=== PATIENT | male | born 1980 | race Caucasian/White ===

== ENCOUNTER 2021-12-10 01:02 | Emergency (ER) | payer BC, SELFPAY ==
--- OUTSIDE RECORDS SUMMARY | 2021-12-10 01:11 | XMS REPORT | Continuity of Care Document ---
:1980 Author Organization [facility] t Address [address] [place] [address] Care Team Providers Name Role Phone Unavailable Unavailable Unavailable Payers Payer Name Policy Type Policy Number Effective Date Expiration Date S ource Problems Condition Condition Condition Status Onset Resolution Last Treating Co mments Source Name Details Category Date Date Treatment Clinician Date Incomplete Incomplete Diagnosis Active [facility] tear [facility] tear of [facility] - left left [facility] rotator rotator l cuff cuff Outpati ent Clinics Pain, Pain, Diagnosis Active [facility] joint, joint, [facility] - shoulder, shoulder, Cristi kera left left l Outpati ent Clinics Superior Superior Diagnosis Active [facility] glenoid glenoid [facility] - labrum labrum [facility] lesion of lesion of l left left Outpati shoulder, shoulder, ent subsequent subsequent Cl inics encounter encounter Bicipital Bicipital Diagnosis Active [facility] tendinitis tendinitis Venecia kes - of left of left [facility] shoulder shoulder l Outpati ent Clinics Allergies, Adverse Reactions, Alerts Allergy Allergy Status Severity Reaction(s) Onset Inactive Treating Comm ents Source Name Type Date Date Clinician No Known DA Active [facility] [place] [facility] No Known DA Active [facility] 09[facility] [place] [facility] 00:[facility] Medications Ordered Filled Start Stop Current Ordering Indication Dosage Frequency Signature Comments Components Source Medication Medication Date Date Medication? Clinician (SIG) Name Name Ibuprofen Ibuprofen Yes Venancio [address] [facility] 9-25 Fry with food [facility] - 00:00: or milk as [facility]oria 00 needed l Outpati ent Clinics Procedures This patient has no known procedures. Encounters Start End Encounter Admission Attending Care Care Encounter Source Date/Time Date/Time Type Type Clinicians Facility Department ID 2021-09-25 Outpatient [facility] [id number] [facility] 13:56:07 [id number] [facility] 2018-08-10 2018-08-10 [facility] [id number] [facility] 10:30:00 10:30:00 [facility] 2018-06-11 2018-06-11 [facility] [id number] [facility] 10:37:00 10:37:00 t [facility] 2018-06-08 2018-06-08 [facility] [id number] [facility] 08:00:00 08:00:00 t [facility] 2018-05-31 2018-05-31 [facility] [id number] [facility] 10:56:00 10:56:00 t [facility] 2018-05-26 2018-05-26 [facility] [id number] 10:40:00 10:40:00 t [facility] 2018-05-25 2018-05-25 [facility] [id number] 08:30:00 08:30:00 t [facility] Results This patient has no known results.
[2021-12-10 02:08] LABS: Urine Blood Negative (Negative); Urine Glucose Negative (Negative); Urine Protein Negative (Negative); Urine Specific Gravity 1.025 (1.005-1.030)
[2021-12-10 02:18] LABS: Absolute Lymphocytes (CBC) 1.5 K/uL (0.7-4.9); Lymphocytes % 28.6 % (15.3-44.8); MPV 7.3 fL (7.6-11.3); RBC Red Blood Cell Count 4.76 M/uL (4.33-5.43)
[2021-12-10 02:21] LABS: Protime INR 1.11
[2021-12-10 02:33] LABS: Barbiturates NEGATIVE (NEGATIVE); Benzodiazepines POSITIVE (NEGATIVE); Cocaine NEGATIVE (NEGATIVE); METHAMPHETAM POSITIVE (NEGATIVE); Methadone NEGATIVE (NEGATIVE); Opiates NEGATIVE (NEGATIVE); Phencyclidine NEGATIVE (NEGATIVE); THC Cannibis NEGATIVE (NEGATIVE)
[2021-12-10 02:41] LABS: ALT/SGPT 21 U/L (12-78); AST/SGOT 15 U/L (15-37); Albumin 3.3 g/dL (3.4-5.0); Alkaline Phosphatase 62 U/L (45-117); BUN Blood Urea Nitrogen 12 mg/dL (7-18); Bicarbonate 27 mmol/L (21-32); Bilirubin Direct 0.2 mg/dL (0-0.2); Bilirubin Total 0.7 mg/dL (0.2-1.0); Glucose Level 83 mg/dL (74-106); Potassium 3.5 mmol/L (3.5-5.1); Sodium Level 142 mmol/L (136-145); Troponin High Sensitivity 4.3 pg/mL (<58.9)
--- NOTE | 2021-12-10 07:19 | EDPHYS ---
Physician Documentation [facility] Name: Ricardo Garcia Age: 41 yrs Sex: Male : 1980 Arrival Date: 12/10/2021 Time: 01:12 Bed 18 Private MD: ED Physician Vinay Gifford HPI: 12/10 01:25 This 41 yrs old Male presents to ER via EMS with complaints of Overdose. mh7 01:25 The patient presents to the emergency department with a possible overdose, pills found mh7 near patient. Context: Method: the patient has a confirmed or suspected ingestion, of alcohol, of narcotics, variable pills suspected, Time: the patient's OD/poisoning occurred at an unknown time, Extent: it is unknown what amount the patient ingested, the OD/poisoning occurred at at home, and was witnessed no one, Psychiatric history: it is unknown whether or not the patient has an antecedent psychiatric history, Previous OD/poisoning history: It is unknown if the patient has had similar previous episodes. Associated signs and symptoms: Pertinent positives: depression. Severity of symptoms: At their worst the symptoms were moderate today, in the emergency department the symptoms are unchanged. Found by police at home with multiple different pills near him and bottle of ETOH with AMS. Family had called police to do a welfare check after patient sent a text saying "Goodbye" to family member.. 07:21 It is unknown whether or not the patient has had similar symptoms in the past. clementina Historical: - Allergies: 08:47 No Known Allergies; ss - Home Meds: 08:47 None [Active]; ss - PMHx: 08:47 None; ss - PSHx: 08:47 None; ss - Immunization history:: Adult Immunizations unknown. - Social history:: Smoking status: unknown. ROS: 01:25 Unable to obtain ROS due to altered mental status. 7 Exam: 01:25 Head/Face: Normocephalic, atraumatic. mh7 01:25 Neck: Trachea midline, no thyromegaly or masses palpated, and no cervical lymphadenopathy. Supple, full range of motion without nuchal rigidity, or vertebral point tenderness. No Meningismus. Chest/axilla: Normal chest wall appearance and motion. Nontender with no deformity. No lesions are appreciated. Cardiovascular: Regular rate and rhythm with a normal S1 and S2. No gallops, murmurs, or rubs. Normal PMI, no JVD. No pulse deficits. Respiratory: Lungs have equal breath sounds bilaterally, clear to auscultation and percussion. No rales, rhonchi or wheezes noted. No increased work of breathing, no retractions or nasal flaring. Abdomen/GI: Soft, non-tender, with normal bowel sounds. No distension or tympany. No guarding or rebound. No evidence of tenderness throughout. Back: No spinal tenderness. No costovertebral tenderness. Full range of motion. Skin: Warm, dry with normal turgor. Normal color with no rashes, no lesions, and no evidence of cellulitis. MS/ Extremity: Pulses equal, no cyanosis. Neurovascular intact. Full, normal range of motion. 01:25 Constitutional: The patient appears AMS, responsive to tactile stimuli 01:25 Eyes: Periorbital structures: appear normal, Pupils: pinpoint, bilaterally. 01:25 Neuro: Orientation: unable to test, AMS, Mentation: unable to test, AMS, Memory: unable to test, AMS, Cranial nerves: unable to test, AMS, Cerebellar function: unable to test, AMS, Motor: moves all fours, Sensation: no obvious gross deficits, Gait: not tested. seizure activity, is not displayed by the patient, Abnormal movements: there are no abnormal movements. Vital Signs: 01:12 BP 142 / 92; Pulse 77; Resp 14; Temp 97.4(TE); Pulse Ox 97% on R/A; Weight 108.86 kg jb4 (R); Height 6 ft. 3 in. (190.50 cm) (R); Pain 0/10; 01:26 BP 133 / 93; Pulse 73; Resp 14; Temp 98.5; Pulse Ox 99% on 2 lpm NC; Pain 0/10; anupama 02:43 BP 136 / 87; Pulse 57; Resp 14; Pulse Ox 99% on 2 lpm NC; Pain 0/10; anupama 04:17 BP 132 / 85; Pulse 70; Resp 18; Pulse Ox 99% on R/A; Pain 0/10; anupama 05:32 BP 143 / 94; Pulse 65; Resp 18; Pulse Ox 99% on R/A; Pain 0/10; anupama 06:40 BP 141 / 95; Pulse 72; Resp 18; Pulse Ox 99% on R/A; Pain 0/10; anupama 08:00 BP 168 / 92; Pulse 73; Resp 18 S; Temp 97.8(TE); Pulse Ox 100% on R/A; Pain 1/10; aa5 15:42 BP 157 / 69; Pulse 75; Resp 16; Temp 97.2; Pulse Ox 99% on R/A; dw3 01:12 Body Mass Index 30.00 (108.86 kg, 190.50 cm) jb4 MDM: 06:54 Differential diagnosis: Ingestion/exposure to narcotics polypharmacy, over medication, mh7 hypoglycemia, closed head injury, intracranial hemorrhage. Data reviewed: vital signs, nurses notes, EMS record. ED course: Patient AA\\T\\Ox4, NAD, VSS, no focal neurological deficits. He does not remember all of the events from last night but does admit to feeling depressed and is tearful.. 07:16 Patient medically screened. clementina 12/10 01:15 Order name: Acetaminophen; Complete Time: 02:45 12/10 01:15 Order name: Basic Metabolic Panel; Complete Time: 02:45 12/10 01:15 Order name: CBC with Diff; Complete Time: 02:45 12/10 01:15 Order name: ETOH Level; Complete Time: 02:45 12/10 01:15 Order name: Hepatic Function; Complete Time: 02:45 12/10 01:15 Order name: PT-INR; Complete Time: 02:45 12/10 01:15 Order name: Ptt, Activated; Complete Time: 02:45 12/10 01:15 Order name: Salicylate; Complete Time: 02:45 12/10 01:15 Order name: Urine Drug Screen; Complete Time: 02:45 12/10 01:15 Order name: Troponin High Sensitivity; Complete Time: 02:45 12/10 02:09 Order name: Urine Dipstick-Ancillary; Complete Time: 02:45 EDMS 12/10 02:46 Order name: CPK; Complete Time: 03:38 12/10 07:29 Order name: COVID-19 SARS RT PCR (Document "Date of Onset" if Symptomatic); Complete bd Time: 15:44 12/10 01:15 Order name: EKG; Complete Time: 01:16 12/10 01:15 Order name: EKG - Nurse/Tech; Complete Time: 02:09 12/10 01:15 Order name: IV Saline Lock; Complete Time: 02:09 12/10 01:15 Order name: Labs collected and sent; Complete Time: 02:09 12/10 01:15 Order name: Suicide Precautions; Complete Time: 02:09 12/10 01:15 Order name: Suicide Screening ([place]); Complete Time: 02:09 12/10 01:15 Order name: Urine Dipstick-Ancillary (obtain specimen); Complete Time: 02:09 12/10 01:20 Order name: C Spine Wo Con EDCO 12/10 01:20 Order name: Head Brain Wo Cont EDCO 12/10 07:18 Order name: Diet Regular; Complete [facility]: 07:19 [facility] 12/10 11:22 Order name: Diet Finger Food; Complete Time: 11:23 bd 12/10 11:31 Order name: Diet Finger Food; Complete Time: 11:31 [facility] 12/10 17:13 Order name: Diet Finger Food; Complete Time: 17:13 dw3 Administered Medications: 20:36 Not Given (Patient Refused; deputy here soonn): Ativan (LORazepam) 2 mg IM once anupama 20:37 Not Given (Patient Refused; deputy here soon): HALdol (as decanoate) 5 mg IM once anupama 20:37 Not Given (Patient Refused; deputy here soon): Benadryl (diphenhydrAMINE) 50 mg IM once anupama Disposition Summary: 12/10/21 07:19 Transfer Ordered Transfer Location: Psych Facility clementina Reason: Higher level of care clementina Condition: Fair clementina Problem: new clementina Symptoms: have improved clementina Accepting Physician: to psych(12/10/21 20:40) anupama Diagnosis - Major depressive disorder, recurrent, moderate clementina - Suicidal ideations clementina Forms: - Medication Reconciliation Form clementina - SBAR form clementina Signatures: Dispatcher [employer] EDDeshaun Hammer MD MD cha Smirch, Shelby, RN RN Eusebio Riggins RN RN jb4 Vinay Gifford MD MD 7 Kat Lake RN RN anupama Corrections: (The following items were deleted from the chart) 01:18 01:16 Head C Spine MPR Wo Con+CT.RAD.BRZ ordered. EDMS EDMS 01:17 Allergies: unknown; [facility] 01:17 Home Meds: Unable to obtain; [facility] 01:17 PMHx: Unable to Obtain; [facility] 01:17 PSHx: Unable to Obtain; [facility] 20:40 07:19 to psych clementina anupama
--- NOTE | 2021-12-10 07:19 | ER ---
Nurse's Notes [facility] Name: Ricardo Garcia Age: 41 yrs Sex: Male : 1980 Arrival Date: 12/10/2021 Time: 01:12 Bed 18 Private MD: Diagnosis: Major depressive disorder, recurrent, moderate;Suicidal ideations Presentation: 12/10 01:12 Chief complaint: EMS states: Law enforcement was called to do a welfare check tonight jb4 when the pt sent out a text message to family saying venessae. He has been having suicidal ideations for the past few days. When law enforcement arrived they found the pt with multiple opened pill bottoms and beer bottles on the ground an a gun to his head. Pt did not fire, by the time EMS arrive he was lethargic and responding to painful stimuli. 4 mg of zofran given Mental health officer here to present staff with DAMON for pt. List of medication bottles found are Methocarbamol, Phentermine, Hydrocodone, Naproxen, Cyclobenzaprine. Coronavirus screen: At this time, unable to obtain information related to travel outside the [place] Ebola Screen: No symptoms or risks identified at this time. Initial Sepsis Screen: Does the patient meet any 2 criteria? No. Patient's initial sepsis screen is negative. Does the patient have a suspected source of infection? No. Patient's initial sepsis screen is negative. Risk Assessment: Do you want to hurt yourself or someone else? Patient reports desire/thoughts of hurting themselves or someone else. Provider notified. Onset of symptoms was December 10, 2021. Transition of care: patient was not received from another setting of care. 01:12 Method Of Arrival: EMS: [facility] jb4 01:12 Acuity: MARLENA 2 jb4 01:12 Care prior to arrival: Medication(s) given: Normal saline infusion, 1000 mL, zofran 4 jb4 mg. Triage Assessment: 01:32 General: Appears Somnolent . Behavior is unresponsive. anupama Historical: - Allergies: 08:47 No Known Allergies; ss - Home Meds: 08:47 None [Active]; ss - PMHx: 08:47 None; ss - PSHx: 08:47 None; ss - Immunization history:: Adult Immunizations unknown. - Social history:: Smoking status: unknown. Screenin:26 Abuse screen: unable to answer. Nutritional screening: No deficits noted. Tuberculosis anupama screening: unable to respond. Fall Risk None identified. Assessment: 01:26 Reassessment: No changes from previously documented assessment. Pt somnolent and anupama snoring. Pain: Unable to use pain scale. Patient is unresponsive. only to painful stimuli. 01:28 Reassessment: Contacted poison control, spoke with Zuleyka. Recommended to do OD panel on jb4 pt, give minimal dose of Narcan for respirations <10. Otherwise recommended to give symptomatic and supportive care, keep for 8 hours observation. expect tachycardia and lethargy. If Tylenol panel is positive at any level, recommended to give acetylcysteine. Case # [id number], ED Physician notified of recommendations. 03:03 Reassessment: The pt's silver in color chain was given to security and a belongings anupama list completed. 05:32 Reassessment: The pt is sleeping, with clear, audible breaths. anupama 05:56 Reassessment: Poison control called to f/u. anupama 06:38 Reassessment: The pt is AAOx3, but states,"I don't remember anything..." I explained to anupama him when he got here and what EMS said. He was cooperative and pleasant. 06:42 Reassessment: The MD is at bedside explaining to the pt the "how" and "why" of it. anupama 06:48 Reassessment: The pt used another nurse's phone to call his . He is emotionally anupama labile speaking with her. 07:15 General: Appears comfortable, Behavior is calm, cooperative. Pain: Complains of pain in aa5 low back Pain does not radiate. Pain currently is 1 out of 10 on a pain scale. at worst was 9 out of 10 on a pain scale. Quality of pain is described as aching, Pain began now Aggravated by increased activity, repositioning. Neuro: Level of Consciousness is awake, alert, obeys commands, Oriented to person, place, time, situation. Cardiovascular: Heart tones S1 S2 present Rhythm is sinus rhythm. Respiratory: Airway is patent Respiratory effort is even, unlabored, Respiratory pattern is regular, symmetrical. GI: Abdomen is round Abd is soft and non tender X 4 quads. : No signs and/or symptoms were reported regarding the genitourinary system. EENT: No signs and/or symptoms were reported regarding the EENT system. Derm: Skin is pink, warm \\T\\ dry. Bruising that is faded purple to left upper thigh . Musculoskeletal: Range of motion: intact in all extremities. 07:15 Reassessment: See paper chart for safety checks and other documentation. . aa5 08:00 Reassessment: Pt refused breakfast, pt now sleeping. . aa5 09:00 Reassessment: Pt sleeping, respirations even and unlabored. . aa5 10:00 Reassessment: Pt sleeping, respirations even and unlabored. . aa5 11:00 Reassessment: Pt sleeping, respirations even and unlabored. . aa5 11:55 Reassessment: Reassessment: Report given to [facility]. . aa5 12:00 Reassessment: Patient is alert, oriented x 3, equal unlabored respirations, skin aa5 warm/dry/pink. 12:15 Reassessment: Report given to Abigail from [facility]. 13:00 Reassessment: Pt ate 100% of lunch, tolerated well. . aa5 14:00 Reassessment: Pt sitting up in chair. Sitter remains at bedside. . aa5 15:00 Reassessment: Patient is alert, oriented x 3, equal unlabored respirations, skin aa5 warm/dry/pink. Pt sitting up in chair. . 16:00 Reassessment: Pt sleeping, equal unlabored respirations. . aa5 16:30 Reassessment: Pt has been accepted to [facility]. Awaiting [facility] for transfer to psych facility. . 17:55 Reassessment: Awaiting [facility] for transport to psych facility. Pt aa5 currently sleeping. . 18:03 Reassessment: Pt declined dinner tray at this time. . aa5 19:50 Reassessment: The [facility] Mental office called for deputy, as the pt is anupama agitated, cursing, threatening behavior, as he is anxious to "go". Per the dispatcher, there is no ETA on the deputy to transport and we should call [place] [employer], should it escalate. 20:06 General: Behavior is agitated, uncooperative. tw5 20:11 Reassessment: The pt is becoming more agitated, screaming and cursing, so a "[employer] [place]" anupama was called. Security is at the room, and the charge nurse spoke with him about taking the medications ordered, but he was not receptive. The pt continues talking out, cursing, saying things such as,"if I lose my job, I lose my family" "I want the fuck out of here!" I've asked Security to remain here. 20:14 General: Mental Health called at [phone], no ETA was provided they simply advised tw5 if the patient is in crisis to call [facility]. . 20:28 Reassessment: The charge nurse has spoken with [facility] dispatch, and they said anupama that the deputy is on his way. The pt has refused the medications and the MD is aware. Security remains close by, as the pt continues his tirade of profanities and acting out. 20:35 Reassessment: The Mental Health officer is at the front office administrator and will be at bedside, anupama shortly, to take the pt to [facility]. 20:39 Reassessment: The pt left with the officer, without incidence. anupama Psych: 01:33 [place] Suicide Severity Screening: In the past month, have you wished you were anupama or wished you could go to sleep and not wake up? unable to respond "In the past month, have you actually had any thoughts of killing yourself?" unable to respond, but that is what info was given by EMS "In your lifetime, have you ever done anything, started to do anything, or prepared to do anything to end your life?" unable to respond. Subjective: somnolent. Objective: Affect is somnolent. Interventions: pt recv'd in his underwear. Safety Checks: in front of the nurse's station. re EMS report and triage nurse report. Commitment: Patient will be an involuntary commitment. DAMON. 07:15 [place] Suicide Severity Screening: In the past month, have you wished you were aa5 or wished you could go to sleep and not wake up? Patient responds "No." "In the past month, have you actually had any thoughts of killing yourself?" Patient responds "no." "In your lifetime, have you ever done anything, started to do anything, or prepared to do anything to end your life?" Patient responds "no.". Subjective: Delusions are denied, Hallucinations are denied. Objective: Patient is cooperative, Speech is normal, Affect is appropriate. Interventions: Searched person for dangerous items. Verified patient belongings remain with security. Safety Checks: Personal items have been removed. Door is open. Sitter at bedside. Pt denies. Commitment: Patient will be an involuntary commitment. Pt has DAMON in place. Pt reports he does not recall suicidal attempt last night. Recent life change even is pt's filed for divorce. Vital Signs: 01:12 BP 142 / 92; Pulse 77; Resp 14; Temp 97.4(TE); Pulse Ox 97% on R/A; Weight 108.86 kg jb4 (R); Height 6 ft. 3 in. (190.50 cm) (R); Pain 0/10; 01:26 BP 133 / 93; Pulse 73; Resp 14; Temp 98.5; Pulse Ox 99% on 2 lpm NC; Pain 0/10; anupama 02:43 BP 136 / 87; Pulse 57; Resp 14; Pulse Ox 99% on 2 lpm NC; Pain 0/10; anupama 04:17 BP 132 / 85; Pulse 70; Resp 18; Pulse Ox 99% on R/A; Pain 0/10; anupama 05:32 BP 143 / 94; Pulse 65; Resp 18; Pulse Ox 99% on R/A; Pain 0/10; anupama 06:40 BP 141 / 95; Pulse 72; Resp 18; Pulse Ox 99% on R/A; Pain 0/10; anupama 08:00 BP 168 / 92; Pulse 73; Resp 18 S; Temp 97.8(TE); Pulse Ox 100% on R/A; Pain 1/10; aa5 15:42 BP 157 / 69; Pulse 75; Resp 16; Temp 97.2; Pulse Ox 99% on R/A; dw3 01:12 Body Mass Index 30.00 (108.86 kg, 190.50 cm) jb4 ED Course: 01:12 Patient arrived in ED. jb4 01:14 Vinay Gifford MD is Attending Physician. 7 01:17 Triage completed. jb4 01:17 Arm band placed on right wrist. jb4 01:26 Kat Lake RN is Primary Nurse. anupama 01:26 Patient has correct armband on for positive identification. Bed in low position. RN at anupama bedside as sitter. 01:33 No provider procedures requiring assistance completed. anupama 01:46 C Spine Wo Con In Process Unspecified. EDMS 01:46 Head Brain Wo Cont In Process Unspecified. EDMS 02:09 Troponin High Sensitivity Sent. anupama 02:09 Acetaminophen Sent. anupama 02:10 Basic Metabolic Panel Sent. anupama 02:10 CBC with Diff Sent. anupama 02:10 ETOH Level Sent. anupama 02:10 Hepatic Function Sent. anupama 02:10 PT-INR Sent. anupama 02:10 Ptt, Activated Sent. anupama 02:10 Salicylate Sent. anupama 02:10 Urine Drug Screen Sent. anupama 02:47 CPK Sent. anupama 07:16 Attending Physician role handed off by Vinay Gifford MD clementina 07:16 Deshaun Cortez MD is Attending Physician. clementina 08:17 faxed chart to [facility]. bd 11:25 faxed chart to [facility]. bd 11:46 faxed chart to [facility]. bd 19:10 Report given to Kat Gill RN. aa5 20:01 Attending Physician role handed off by Deshaun Cortez MD 7 20:01 Vinay Gifford MD is Attending Physician. mh7 20:40 Patient did not have IV access during this emergency room visit. anupama Administered Medications: 20:36 Not Given (Patient Refused; deputy here soonn): Ativan (LORazepam) 2 mg IM once anupama 20:37 Not Given (Patient Refused; deputy here soon): HALdol (as decanoate) 5 mg IM once anupama 20:37 Not Given (Patient Refused; deputy here soon): Benadryl (diphenhydrAMINE) 50 mg IM once anupama Outcome: 01:39 Condition: stable anupama 07:19 ER care complete, transfer ordered by . clementina 20:39 Discharged to [facility] on an DAMON, with a deputy. anupama 20:39 Discharge instructions given to police, Instructed on discharge instructions, follow up and referral plans. the need for transfer, Demonstrated understanding of instructions, follow-up care. 20:40 Patient left the ED. anupama Signatures: Dispatcher [employer] EDMN Kajal Velazquez Corey, MD MD cha Calderon, Audri, RN RN aa5 Hazel Lieberman RN RN ss Bryson, James, RN RN jb4 Vinay Gifford MD MD Serena Velazquez 5 Kat Lake RN Lorene Wolff, RN RN dw3 Corrections: (The following items were deleted from the chart) 01:23 01:12 Chief complaint: EMS states: Law enforcement was called to do a welfare check jb4 tonight when the pt sent out a text message to family saying juana. He has been having suicidal ideations for the past few days. When law enforcement arrived they found the pt with multiple opened pill bottoms and beer bottles on the ground an a gun to his head. Pt did not fire, by the time EMS arrive he was lethargic and responding to painful stimuli. Mental health officer here to present staff with DAMON for pt. jb4 01:48 01:12 Chief complaint: EMS states: Law enforcement was called to do a welfare check jb4 tonight when the pt sent out a text message to family saying juana. He has been having suicidal ideations for the past few days. When law enforcement arrived they found the pt with multiple opened pill bottoms and beer bottles on the ground an a gun to his head. Pt did not fire, by the time EMS arrive he was lethargic and responding to painful stimuli. 4 mg of zofran given Mental health officer here to present staff with DAMON for pt. jb4 02:16 02:14 BP 112 / 50; Pulse 85bpm; Resp 18bpm; Pulse Ox 99% RA; Pain 6/10; anupama anupama 08:47 01:17 Allergies: unknown; jb4 ss 08:47 01:17 Home Meds: Unable to obtain; jb4 ss 08:47 01:17 PMHx: Unable to Obtain; 4 ss 08:47 01:17 PSHx: Unable to Obtain; jb4 ss 10:03 07:15 Derm: Skin is pink, warm \\T\\ dry. 5 aa5 15:12 11:55 Reassessment: aa5 aa5
--- NOTE | 2021-12-10 14:23 | RAD REPORT ---
EXAM DESCRIPTION: CT - C Spine Wo Con - 12/10/2021 7:02 am CLINICAL HISTORY: 41 years, Male, AMS COMPARISON: None TECHNIQUE: Multiple axial CT images through the cervical spine were obtained at 2 mm slice thickness at 2 mm interval reconstruction. In addition 2-D multiplanar reformats and the sagittal coronal plan e were performed and reviewed. This exam was performed according to our departmental dose-optimization protocol, which includes auto mated exposure control, adjustment of the mA and/or kV according to patient size and/or use of iterat meka reconstruction technique. FINDINGS: The alignment, vertebral body heights, and disc spaces are normal. There is no evidence of fracture or subluxation. There is anterior spondylosis C3-C6. The spinal canal demonstrate no ev idence for significant stenosis. Neural foramina demonstrate to be unremarkable. The uncovertebral luis ints demonstrate to be normal. There is no prevertebral soft tissue swelling. The lung apices demonst rate to be unremarkable. Sagittal coronal reformatted images demonstrate no subluxation or bony abnor malities. IMPRESSION: No acute fracture or subluxation. Anterior spondylosis C3-C6. Electronically signed by: Williams Anne MD 12/10/2021 2:16 AM CDT Due to temporary technical issues with the PACS/Fluency reporting system, reports are being signed by the in house radiologists without review as a courtesy to insure prompt reporting. The interpreting radiologist is fully responsible for the content of the report.
--- NOTE | 2021-12-10 14:41 | RAD REPORT ---
EXAM DESCRIPTION: CT - Head Brain Wo Cont - 12/10/2021 7:03 am CLINICAL HISTORY: 41 years, Male, AMS COMPARISON: None FINDINGS: Multiple transaxial tomograms of the brain were obtained from the base of the skull to the vertex without contrast. 2-D multiplanar reformats and the coronal and sagittal plane were performed and reviewed. This exam was performed according to our departmental dose-optimization protocol, which includes auto mated exposure control, adjustment of the mA and/or kV according to patient size and/or use of iterat meka reconstruction technique. Brain parenchyma as well as the harper and white matter differentiation demonstrate to be unremarkable. There is no midline shift and/or mass effect. There is no evidence for acute hemorrhage. No focal ar eas of hypodensities. Lateral ventricles and cisterns displace normal appearance. No intra or ext ra axial fluid collections were seen. The calvarium is intact with no evidence for fracture. The visu alized portions of the paranasal sinuses and orbits demonstrate to be clear. IMPRESSION: NO ACUTE INTRACRANIAL HEMORRHAGE. UNREMARKABLE CT SCAN OF THE HEAD WITHOUT CONTRAST. Electronically signed by: Williams Anne MD 12/10/2021 2:14 AM CDT Due to temporary technical issues with the PACS/Fluency reporting system, reports are being signed by the in house radiologists without review as a courtesy to insure prompt reporting. The interpreting radiologist is fully responsible for the content of the report.
[2021-12-11 03:57] VITALS: BP 157/69; TEMP 97.2; O2SAT 99
--- NOTE | 2021-12-11 11:02 | EKG ---
Test Date: 2021-12-10 Test Time: 01:11:53 Head Of Physics: LL MEASUREMENT RESULTS: Intervals: Rate: 77 AK: 164 QRSD: 90 QT: 380 QTc: 430 [place]: P: 61 AK: 164 QRS: -35 T: 44 INTERPRETIVE STATEMENTS: Normal sinus rhythm Possible Left atrial enlargement Left axis deviation Possible Anterior infarct, age undetermined Abnormal ECG No previous ECG available for comparison Electronically Signed On 12-11-21 10:57:55 CDT by Alfa Reilly
== END 2021-12-10 20:40 ==
LOC: ER 01:02
DX: R45.851 Suicidal ideations (principal); F33.1 Major depressive disorder, recurrent, moderate; Z20.822 Contact with and (suspected) exposure to COVID-19
CPT/HCPCS: 93005; 85025; 80048; 36415; 80320; 82550; 80329 ×2; 85610; 80076; 85730; 81003; 84484; 80307; 70450; 72125; U0003; 99285